=== PATIENT | female | born 1995 | race African-American/Black ===

== ENCOUNTER 2016-10-26 17:17 | Observation (INO) | payer OTHER, MEDICAID ==
[~2016-10-26] VITALS: Ht 160 cm; Wt 64.0 kg
[~2016-10-26 17:17] MED LIST: BACT800T5 PO; CEPH500; LACTATED RINGER'S 1000 ML INJ 1,000 ML IV ONE; OXYC1SOL5 PO; PROPOFOL 200 MG/20 ML AMP IV ONE
[2016-10-26 17:18] VITALS: BP 124/85; PULSE 78; RESP 16; TEMP 98.2; O2SAT 98
[2016-10-26 17:42] VITALS: BP 127/77; PULSE 90; RESP 18; O2SAT 97
[2016-10-26] MEDS ORDERED: PIPERACIL-TAZO 3.375 GM PREMIX 50 ML IV ONE (18:00)
[2016-10-26] MEDS ORDERED: SODIUM CHLOR 0.9% 1000 ML INJ 1,000 ML IV SCH ×2 (18:00→22:42)
--- NOTE | 2016-10-26 18:04 | PD ---
HPI Chief Complaint: Lump, Cyst, Hernia Time Seen by Provider: 17:40 Travel History International Travel<30 days: No Contact w/Intl Traveler<30days: No Traveled to known affect area: No History of Present Illness HPI 21-year-old female complaining of pain swelling and redness the left breast. Patient states the symptoms started 2 days ago. Patient was admitted for I&D of left breast abscess twice in the past. Culture grew out group B strep. Patient responded well to Zosyn IV in the past. Patient states the pain is sharp stabbing pain localized to the left breast. Patient denies any pain radiation. On a scale of 1-10 the pain is a 10. Patient denies any fever chills. PFSH Past Medical History Cancer: No Cardiovascular Problems: No High Cholesterol: Yes Endocrine: No Genitourinary: No Immune Disorder: No Musculoskeletal: No Neurologic: No Psychiatric: No Reproductive: No Respiratory: No Immunizations Current: Yes ?: Not LMP: 10/06/16 Past Surgical History Pacemaker: No Other Surgery: Yes (left breast i&d) Social History Alcohol Use: No Tobacco Use: No Substance Use: No Allergies-Medications (Allergen,Severity, Reaction): Coded Allergies: No Known Allergies (Unverified , 10/26/16) Reported Meds & Prescriptions Reported Meds & Active Scripts Active Review of Systems General / Constitutional: No: Fever Eyes: No: Visual changes HENT: No: Headaches Cardiovascular: No: Chest Pain or Discomfort Respiratory: No: Shortness of Breath Gastrointestinal: No: Abdominal Pain Genitourinary: No: Dysuria Musculoskeletal: No: Pain Skin: No Rash Neurologic: No: Weakness Psychiatric: No: Depression Endocrine: No: Polydipsia Hematologic/Lymphatic: No: Easy Bruising Physical Exam Narrative GENERAL: Well-nourished, well-developed patient. SKIN: Warm and dry. Patient has redness swelling induration left breast around the areola area. No discharge noted. HEAD: Normocephalic. EYES: No scleral icterus. No injection or drainage. NECK: Supple, trachea midline. No JVD or lymphadenopathy. CARDIOVASCULAR: Regular rate and rhythm without murmurs, gallops, or rubs. RESPIRATORY: Breath sounds equal bilaterally. No accessory muscle use. GASTROINTESTINAL: Abdomen soft, non-tender, nondistended. MUSCULOSKELETAL: No cyanosis, or edema. BACK: Nontender without obvious deformity. No CVA tenderness. Neurologic exam normal. Data Data Last Documented VS Vital Signs Date Time Temp Pulse Resp B/P Pulse Ox O2 Delivery O2 Flow Rate FiO2 10/26/16 17:42 90 18 127/77 97 Room Air 10/26/16 17:18 98.2 Orders Complete Blood Count With Diff (10/26/16 17:47) Basic Metabolic Panel (Bmp) (10/26/16 17:47) Iv Access Insert/Monitor (10/26/16 17:47) Urinalysis - C+S If Indicated (10/26/16 17:48) Ed Urine Pregnancytest Poc (10/26/16 17:48) Sodium Chlor 0.9% 1000 Ml Inj (Ns 1000 M (10/26/16 18:00) MDM Medical Decision Making Medical Screen Exam Complete: Yes Emergency Medical Condition: Yes Differential Diagnosis Differential diagnosis including cellulitis, abscess. Narrative Course 21-year-old female with pain redness swelling induration left breast. History of recurrent abscess that required I&D. Normal saline solution 1 25 cc an hour. Zosyn 3.375 g IV given. Diagnosis Primary Impression: Left breast abscess Admitting Information Admitting Physician Requests: Admit Antonino Rodriguez MD Oct 26, 2016 18:04
[2016-10-26 18:14] LABS: AUTOMATED NEUTROPHIL # 6.8 TH/MM3 (1.8-7.7); BASOPHIL # 0.1 TH/MM3 (0-0.2); BASOPHIL % 0.6 % (0.0-2.0); EOSINOPHIL % 0.5 % (0.0-4.0); HEMATOCRIT 38.4 % (35.0-46.0); HEMO FLAGS DIFF FINAL; LYMPH % 18.8 % (9.0-44.0); LYMPHOCYTE # 1.8 TH/MM3 (1.0-4.8); MEAN CELL VOLUME 82.8 FL (80.0-100.0); MEAN CORPUSCULAR HGB CONC 33.9 % (32.0-36.0); MONO % 8.7 % (0.0-8.0); NEUT % 71.4 % (16.0-70.0); PLATELET COUNT 198 TH/MM3 (150-450); RED BLOOD COUNT 4.64 MIL/MM3 (4.00-5.30); RED CELL DISTRIBUTION WIDTH 14.1 % (11.6-17.2); WHITE BLOOD COUNT 9.6 TH/MM3 (4.0-11.0)
[2016-10-26 18:21] LABS: BLOOD, URINE NEG (NEG); COMMENT (UR) CULTURE INDICATED; CULTURE IF INDICATED CULTURE INDICATED; GLUCOSE,URINE NEG (NEG); KETONE, URINE 10 mg/dL (NEG); MUCUS URINE MANY /lpf (OCC); NITRITE,URINE NEG (NEG); SQUAMOUS EPITHELIAL CELL URINE 9 /hpf (0-5); URINE COLOR YELLOW (YELLW/STRAW)
--- NOTE | 2016-10-26 18:28 | HHI.HP ---
HPI Service General surgery Primary Care Physician No Primary Care Physician Admission Diagnosis Chief Complaint: left breast pain History of Present Illness This is a 21-year-old female who presents with left breast pain and swelling. The pain has been present since . She has had 2 previous incision and drainages of the left breast in the same area. One was in March and one in May of last year. 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 She has not been seen or been on any antibiotics. Review of Systems Constitutional: DENIES: Fever, Chills Eyes: DENIES: Eye inflammation, Eye pain Cardiovascular: DENIES: Chest pain, Palpitations Gastrointestinal: DENIES: Abdominal pain, Diarrhea Integumentary: DENIES: Pruritus, Rash Past Family Social History Past Medical History None Past Surgical History Left breast incision and drainage 2 Reported Medications None Allergies: Coded Allergies: No Known Allergies (Unverified , 10/26/16) Active Ordered Medications Current Medications Medications (Trade) Dose Ordered Sig/Anat Route Start Time Stop Time Status Last Admin Sodium Chloride 1,000 ml @ 125 mls/hr Q8H IV 10/26/16 18:00 10/26/16 18:18 (Zosyn 3.375 Gm Premix) 50 ml @ 100 mls/hr ONCE ONCE IV 10/26/16 18:00 10/26/16 18:29 10/26/16 18:18 Family History Noncontributory Social History Tobacco alcohol or drug use. She is a student at [employer] in [facility]. Physical Exam Vital Signs Vital Signs Date Time Temp Pulse Resp B/P Pulse Ox O2 Delivery O2 Flow Rate FiO2 10/26/16 17:42 90 18 127/77 97 Room Air 10/26/16 17:18 98.2 78 16 124/85 98 Physical Exam The patient was examined in the presence of a female nurse. GENERAL: Awake and alert. No acute distress. Cooperative. HEAD: Normocephalic. Atraumatic. BREASTS: Swelling and tenderness of left breast periareolar. There is erythema present. CHEST: Lungs clear to auscultation bilaterally with no wheezing or rhonchi. No respiratory distress. CARDIOVASCULAR: Regular rate and rhythm. EXTREMITIES: No cyanosis or edema. SKIN: Warm, dry, nonjaundiced. Laboratory Laboratory Tests Test 10/26/16 18:00 White Blood Count 9.6 Red Blood Count 4.64 Hemoglobin 13.0 Hematocrit 38.4 Mean Corpuscular Volume 82.8 Mean Corpuscular Hemoglobin 28.0 Mean Corpuscular Hemoglobin 33.9 Concent Red Cell Distribution Width 14.1 Platelet Count 198 Mean Platelet Volume 9.1 Neutrophils (%) (Auto) 71.4 Lymphocytes (%) (Auto) 18.8 Monocytes (%) (Auto) 8.7 Eosinophils (%) (Auto) 0.5 Basophils (%) (Auto) 0.6 Neutrophils # (Auto) 6.8 Lymphocytes # (Auto) 1.8 Monocytes # (Auto) 0.8 Eosinophils # (Auto) 0.0 Basophils # (Auto) 0.1 CBC Comment DIFF FINAL Differential Comment Result Diagram: 10/26/16 1800 Assessment and Plan Assessment and Plan 21-year-old female with recurrent left breast abscess. Recommend incision and drainage. She may benefit from an elective excision of the entire area where she is having the recurrent abscesses and a couple of months. I will discuss this further with her. Details of the procedure were discussed with the patient and she desires to proceed. MushtaqKeaton MD Oct 26, 2016 18:28
[2016-10-26 18:36] LABS: BICARBONATE 25.5 MEQ/L (21.0-32.0); POTASSIUM 3.6 MEQ/L (3.5-5.1)
[2016-10-26] MEDS ORDERED: MORPHINE SULFATE 4 MG/ML INJ IV PUSH ONE (18:45)
[2016-10-26] MEDS ORDERED: ONDANSETRON HCL 4 MG/2 ML VIAL IV PUSH ONE (18:45)
[2016-10-26 19:50] VITALS: BP 122/72; PULSE 82; RESP 18; O2SAT 96
[2016-10-26 22:08] VITALS: BP 124/76
[2016-10-26] MEDS ORDERED: BUPIVACAINE/EPINEPHRINE 0.25% PF 30 ML VIAL ONE (22:19)
--- NOTE | 2016-10-26 22:42 | PD.OP ---
cc: Keaton Landin MD Operative Report Date of Surgery: Oct 26, 2016 Preoperative Diagnosis: (1) Left breast abscess Postoperative Diagnosis: (1) Left breast abscess Procedure: Incision and drainage left breast abscess Anesthesia: EDWARDA Surgeon: Keaton Landin Production Laborer(s): Staff Operation and Findings: EBL: 5 cc Procedure: The patient was taken to the operating room and placed in supine position. General endotracheal anesthesia was induced. The left breast was prepped and draped in usual sterile fashion. The patient had previous scar from previous incision and drainages inferior periareolar. The area of fluctuance was palpated and a 1 cm incision created in the inferior periareolar. Hemostat was used to enter the abscess cavity. A culture was taken. The hemostat was placed to the other side of the abscess cavity and a small skin incision made. The cavity was broken up with a hemostat and irrigated copiously with a mixture of peroxide and saline. A blue vessel loop was placed through the incisions and tied in place. The cavity was packed with iodoform gauze and a sterile dressing applied. The patient tolerated the procedure well was extubated and taken to PACU in stable condition. Keaton Landin MD Oct 26, 2016 22:42
[2016-10-26] MEDS ORDERED: *MEPERIDINE 25 MG INJ VIAL PERIprocedural Use ONLY ONE (22:44)
[2016-10-26] MEDS ORDERED: oxyCODONE/ACETAMINOPHEN 5 MG/325 MG TAB PO PRN (22:45)
[2016-10-26] MEDS ORDERED: SODIUM CHLORIDE 0.9% FLUSH 5 ML FLUSH IVF PRN (22:45)
[2016-10-26] MEDS ORDERED: ONDANSETRON HCL 4 MG/2 ML VIAL IV PRN (22:45)
[2016-10-26] MEDS ORDERED: OXYC1TAB63 PO (22:47)
[2016-10-26] MEDS ORDERED: CLIN150 PO (22:47)
[2016-10-26] MEDS ORDERED: *morphine SULFATE 8 MG/ML PERIprocedure ONLY ONE (23:12)
[2016-10-26] MEDS ORDERED: DO NOT ADM ANY ANTICOAGULANT DRUGS XX PRN (23:15)
[2016-10-27] MEDS: CLINDAMYCIN 150 MG CAP PO SCH ×3 (00:08→12:11)
[2016-10-27] MEDS: MORPHINE SULFATE 4 MG/ML INJ IV PRN ×2 (00:10→10:34)
[2016-10-27 00:15] VITALS: BP 113/61; PULSE 63; RESP 18; TEMP 98.6; O2SAT 100
[2016-10-27] MEDS ORDERED: fentaNYL CITRATE 250 MCG/5 ML AMP ONE (00:17)
[2016-10-27] MEDS ORDERED: MIDAZOLAM HCL 2 MG/2 ML VIAL ONE (00:18)
[2016-10-27] MEDS: oxyCODONE/ACETAMINOPHEN 5 MG/325 MG TAB PO PRN ×3 (01:17→13:53)
[2016-10-27 04:00] VITALS: BP 112/59; PULSE 78; RESP 19; TEMP 97.8; O2SAT 98
[2016-10-27] MEDS ORDERED: SODIUM CHLORIDE 0.9% FLUSH 5 ML FLUSH IVF SCH (09:00)
--- NOTE | 2016-10-27 13:25 | HHI.PR ---
Subjective Subjective Notes The patient feels better today than yesterday evening. She has very little pain now which is well controlled with minimal medication. She has had virtually no drainage from the incision site and the packing was removed by the nurse earlier this morning. Objective Vitals/I&O Vital Signs Date Time Temp Pulse Resp B/P Pulse Ox O2 Delivery O2 Flow Rate FiO2 10/27/16 04:00 97.8 78 19 112/59 98 10/26/16 23:30 Nasal Cannula 3 Labs Laboratory Tests Test 10/26/16 10/26/16 17:58 18:00 Urine Color YELLOW Urine Turbidity HAZY Urine pH 6.0 Urine Specific [place] 1.035 Urine Protein 30 Urine Glucose (UA) NEG Urine Ketones 10 Urine Occult Blood NEG Urine Nitrite NEG Urine Bilirubin NEG Urine Urobilinogen LESS THAN 2.0 Urine Leukocyte Esterase MOD Urine RBC 7 Urine WBC 17 Urine Squamous Epithelial 9 Cells Urine Mucus MANY Microscopic Urinalysis Comment CULTURE INDICATED White Blood Count 9.6 Red Blood Count 4.64 Hemoglobin 13.0 Hematocrit 38.4 Mean Corpuscular Volume 82.8 Mean Corpuscular Hemoglobin 28.0 Mean Corpuscular Hemoglobin 33.9 Concent Red Cell Distribution Width 14.1 Platelet Count 198 Mean Platelet Volume 9.1 Neutrophils (%) (Auto) 71.4 Lymphocytes (%) (Auto) 18.8 Monocytes (%) (Auto) 8.7 Eosinophils (%) (Auto) 0.5 Basophils (%) (Auto) 0.6 Neutrophils # (Auto) 6.8 Lymphocytes # (Auto) 1.8 Monocytes # (Auto) 0.8 Eosinophils # (Auto) 0.0 Basophils # (Auto) 0.1 CBC Comment DIFF FINAL Differential Comment Sodium Level 140 Potassium Level 3.6 Chloride Level 106 Carbon Dioxide Level 25.5 Anion Gap 9 Blood Urea Nitrogen 14 Creatinine 0.81 Estimat Glomerular Filtration 108 Rate Random Glucose 88 Calcium Level 9.0 Date/Time Procedure Status Source Growth 10/26/16 22:20 Gram Stain - Final Resulted Abscess Breast 10/26/16 22:20 Wound Culture Resulted Abscess Breast Pending 10/26/16 17:58 Urine Culture Received Urine Clean Catch Pending Cardiovascular: Regular Lungs: Clear Abdomen: Non-distended, Non-tender, BS normal Extremities: No edema Narrative Exam The wound is clean and dry with minimal serosanguineous drainage. The packing is been removed. A/P Assessment and Plan Impression: Status post incision and drainage of left breast abscess. Doing well. Plan: Discharge today. The patient is to come back to see Dr. Landin on Friday of this week. Arcadio Mejia MD Oct 27, 2016 13:25
[2016-10-27 13:38] VITALS: O2SAT 99
[2016-12-03] MEDS ORDERED: PERC5TAB12 PO (11:08)
== END 2016-10-27 15:06 | disposition home or self-care (01) ==
LOC: EDBD → NEPA 17:17 → NEDA 18:26 → HOCB 23:34
PROVIDERS: ADMIT Surgery; ATTEND Surgery
DX: N61.1 Abscess of the breast and nipple (principal); B95.1 Streptococcus, group B, as the cause of diseases classified elsewhere; N64.4 Mastodynia; R82.79 Other abnormal findings on microbiological examination of urine; E78.00 Pure hypercholesterolemia, unspecified
CPT/HCPCS: 00400; 10060; 80048; 81001; 84703; 85025; 86403; 87070; 87086; 87185; 87205; 96374; 99284; G0378; J2175; J2250; J2270; J2405; J2543; J3010; J7030; J7120

== ENCOUNTER → 2016-11-25 | Outpatient (CLI) | payer MEDICAID ==
[~2016-11-25] MED LIST changes: -BACT800T5 PO; -CEPH500; +CLIN150 PO; -LACTATED RINGER'S 1000 ML INJ 1,000 ML IV ONE; -OXYC1SOL5 PO; +OXYC1TAB63 PO; +PERC5TAB12 PO; -PROPOFOL 200 MG/20 ML AMP IV ONE
[2016-11-25 12:30] LABS: AUTOMATED NEUTROPHIL # 2.1 TH/MM3 (1.8-7.7); BASOPHIL % 0.8 % (0.0-2.0); HEMATOCRIT 37.9 % (35.0-46.0); HEMO FLAGS DIFF FINAL; LYMPH % 35.9 % (9.0-44.0); LYMPHOCYTE # 1.6 TH/MM3 (1.0-4.8); MEAN CELL VOLUME 82.9 FL (80.0-100.0); MEAN CORPUSCULAR HEMOGLOBIN 28.3 PG (27.0-34.0); MEAN CORPUSCULAR HGB CONC 34.1 % (32.0-36.0); MONO % 12.7 % (0.0-8.0); NEUT % 49.6 % (16.0-70.0); PLATELET COUNT 216 TH/MM3 (150-450); RED BLOOD COUNT 4.57 MIL/MM3 (4.00-5.30); WHITE BLOOD COUNT 4.3 TH/MM3 (4.0-11.0)
== END ==
LOC: EDBD → CLAB 12:07
PROVIDERS: ATTEND Surgery
DX: N61.1 Abscess of the breast and nipple (principal)
CPT/HCPCS: 36415; 85025

== ENCOUNTER → 2016-12-03 | Day surgery (SDC) | payer OTHER, MEDICAID ==
[~2016-12-03] MED LIST changes: +*morphine SULFATE 8 MG/ML PERIprocedure ONLY ONE; +ACETAMINOPHEN 1000 MG/100 ML VIAL IV SCH; +BACITRACIN TOP OINT 15 GM TUBE ONE; +BUPIVACAINE/EPINEPHRINE 0.5% PF 30 ML VIAL ONE; -CLIN150 PO; +CLINDAMYCIN 900/NS 100 ML IV SCH; +DEXAMETHASONE SOD PHOS 4 MG/ML VIAL ONE; +DO NOT ADM ANY ANTICOAGULANT DRUGS XX PRN; +FAMOTIDINE 20 MG/2 ML VIAL ONE; +INSULIN HUMAN REGULAR 1,000 UNITS/10 ML VIAL SQ PRN; +LACTATED RINGER'S 1000 ML IV SCH; +LIDOCAINE 1%/EPINEPHrine 1:100,000 SOLN 30 ML VIAL ONE; +METOPROLOL TARTRATE 25 MG TAB PO PRN; +MIDAZOLAM HCL 2 MG/2 ML VIAL ONE; +MORPHINE SULFATE 4 MG/ML INJ IV PRN; +ONDANSETRON HCL 4 MG/2 ML VIAL IV PRN; +ONDANSETRON HCL 4 MG/2 ML VIAL IV PUSH ONE; -OXYC1TAB63 PO; +PROPOFOL 200 MG/20 ML AMP IV ONE; +SODIUM CHLORID 0.9% 500 ML IV SCH; +SODIUM CHLORIDE 0.9% INJ 100 ML ONE; +ceFAZolin 2 GM PREMIX 50 ML IV SCH; +ePHEDrine/NS 25 MG/5 ML SYR IV ONE; +fentaNYL CITRATE 250 MCG/5 ML AMP ONE; +oxyCODONE/ACETAMINOPHEN 5 MG/325 MG TAB PO PRN
[2016-12-03 07:20] VITALS: BP 108/64; PULSE 60; RESP 20; TEMP 98.1; O2SAT 99
--- NOTE | 2016-12-03 10:53 | PD.OP ---
cc: Keaton Landin MD Operative Report Date of Surgery: Dec 03, 2016 Preoperative Diagnosis: (1) Left breast abscess Postoperative Diagnosis: (1) Left breast abscess Procedure: excision left breast periariolar tissue Anesthesia: GEN via LMA Surgeon: Keaton Landin Currency Exchange Specialist(s): Jane GILMORE Operation and Findings: EBL: 5cc Specimen: Left breast tissue and cyst Operative findings: The patient had significant amount of scar tissue in the medial inferior periareolar area. The previous scar was excised. There was present and excised a 5 mm cyst. Procedure: The patient was taken to the operating room and placed in supine position. Gen. anesthesia via LMA was induced. The left breast was prepped and draped in usual sterile fashion. Surgical timeout was performed to verify correct patient procedure and site. The patient has a history of multiple recurrent left breast infections at the same site. At the medial inferior periareolar region a curvilinear elliptical incision was made to incorporate the previous scars. Sharp dissection was carried out down to the underlying breast tissue. Just deep to the periareolar skin there was a 5 mm cyst which appeared to have sebum in it. This was excised. The cyst was quite close to the dermis and the skin was a little thin here. The remainder of scar tissue and small amount of surrounding breast tissue was also removed. Hemostasis was achieved. The wound was copiously irrigated. The wound was enclosed in 2 layers with 3-0 Vicryl interrupted deep layer and running 4-0 Monocryl. Steri- Strips were applied. The patient tolerated the procedure well was x-rayed and taken to PACU in stable condition. Keaton Landin MD Dec 03, 2016 10:53
[2016-12-03 12:55] VITALS: BP 108/63; PULSE 72; RESP 18; TEMP 97.9; O2SAT 100
== END | disposition home or self-care (01) ==
LOC: HSDC 07:08
PROVIDERS: ATTEND Surgery
DX: N61.1 Abscess of the breast and nipple (principal); L72.0 Epidermal cyst
CPT/HCPCS: 00400; 19120; 84703; 88305; J0131; J0690; J1100; J2250; J2270; J2405; J3010; J7120; 88304; 88307

== ENCOUNTER 2017-01-07 19:25 | Emergency (ER) | payer MEDICAID ==
[~2017-01-07] VITALS: Ht 160 cm; Wt 62.0 kg
[~2017-01-07 19:25] MED LIST changes: -*morphine SULFATE 8 MG/ML PERIprocedure ONLY ONE; -ACETAMINOPHEN 1000 MG/100 ML VIAL IV SCH; -BACITRACIN TOP OINT 15 GM TUBE ONE; -BUPIVACAINE/EPINEPHRINE 0.5% PF 30 ML VIAL ONE; -CLINDAMYCIN 900/NS 100 ML IV SCH; -DEXAMETHASONE SOD PHOS 4 MG/ML VIAL ONE; -DO NOT ADM ANY ANTICOAGULANT DRUGS XX PRN; -FAMOTIDINE 20 MG/2 ML VIAL ONE; -INSULIN HUMAN REGULAR 1,000 UNITS/10 ML VIAL SQ PRN; -LACTATED RINGER'S 1000 ML IV SCH; -LIDOCAINE 1%/EPINEPHrine 1:100,000 SOLN 30 ML VIAL ONE; -METOPROLOL TARTRATE 25 MG TAB PO PRN; -MIDAZOLAM HCL 2 MG/2 ML VIAL ONE; -MORPHINE SULFATE 4 MG/ML INJ IV PRN; -ONDANSETRON HCL 4 MG/2 ML VIAL IV PRN; -ONDANSETRON HCL 4 MG/2 ML VIAL IV PUSH ONE; -PROPOFOL 200 MG/20 ML AMP IV ONE; -SODIUM CHLORID 0.9% 500 ML IV SCH; -SODIUM CHLORIDE 0.9% INJ 100 ML ONE; -ceFAZolin 2 GM PREMIX 50 ML IV SCH; -ePHEDrine/NS 25 MG/5 ML SYR IV ONE; -fentaNYL CITRATE 250 MCG/5 ML AMP ONE; -oxyCODONE/ACETAMINOPHEN 5 MG/325 MG TAB PO PRN
[2017-01-07 19:28] VITALS: BP 125/77; PULSE 81; RESP 18; TEMP 98.7; O2SAT 100
== END 2017-01-07 23:20 | disposition left against medical advice (07) ==
LOC: NED 19:25
DX: R07.0 Pain in throat (principal); R11.10 Vomiting, unspecified; Z53.21 Procedure and treatment not carried out due to patient leaving prior to being seen by health care provider
CPT/HCPCS: 99281